=== PATIENT | male | born 1985 | race Caucasian/White ===

== ENCOUNTER 2022-04-11 09:44 | Emergency (ER) | payer OTHER, SELFPAY ==
--- NOTE | ~2022-04-11 | CT_ITS ---
EXAMINATION: CT abdomen pelvis w con DATE: 04/11/2022 11:59 INDICATION: Rectal pain and constipation. TECHNIQUE: Computed tomography (CT) of the abdomen and pelvis was performed with 100 mL Omnipaque-300 intravenous contrast. Automated exposure control and iterative reconstruction technique were employe d. The dose-length product was 410.49 mGy-cm. COMPARISON: None FINDINGS: Lung bases are clear. Heart size is normal. No pericardial or pleural effusion. Liver, gallbladder, s pleen, pancreas, bilateral adrenal glands and kidneys are normal. Bowels including the appendix are n ormal. Small amount of stool scattered throughout the colon. Bladder is normal. Trace amount of nonsp ecific free fluid in the deep pelvis. Mild likely physiologic anterior wedging at T11 and T12. Mild t horacolumbar spondylosis. IMPRESSION: 1. Trace amount of nonspecific ascites in the deep pelvis of indeterminate etiology. No other acute i ntra-abdominal/pelvic process. Reviewed, dictated and finalized at location A. IMPRESSION: 1. Trace amount of nonspecific ascites in the deep pelvis of indeterminate etio logy. No other acute intra-abdominal/pelvic process.
[2022-04-11 09:46] VITALS: BP 128/73; PULSE 76; RESP 14; TEMP 36.4; O2SAT 100
--- NOTE | 2022-04-11 09:50 | ED.GENADULT ---
HPI - General Adult General Chief complaint: Unspecified Stated complaint: rectal pain Time Seen by Provider: 04/11/22 09:50 Source: patient Mode of arrival: ambulatory Limitations: no limitations History of Present Illness HPI narrative: Patient is a 36 y/o male who presents to the ED with c/o rectal pain. Patient reports having intermittent rectal pain for the past 6 weeks. He saw his primary care doctor a few days ago and was told he may have hemorrhoids. He states his primary did not do a physical examination. He was prescribed hydrocortisone cream, denies any relief with this. States over the last couple days, pain has become severe and constant, causing him to wake up at night. He denies any significant pain with having a bowel movement. He has had regular bowel movements over the last 3 days. He does note a history of constipation but states recently this has been improved. Denies any blood with bowel movements, mixed in stool, or dripping into toilet after passing stool. He states the only time he has noticed blood is if he wipes too hard and he will notice just a spot of blood. He denies feeling a bulge in his perianal region. No significant itching. Patient reports nausea, but denies vomiting, abdominal pain, fever, chills, testicular pain or swelling, urinary symptoms. Related Data Allergies Allergy/AdvReac Type Severity Reaction Status Date / Time No Known Allergies Allergy Verified 04/11/22 09:45 Review of Systems Review of Systems: CONSTITUTIONAL: Denies fever, chills, or sweats. GASTROINTESTINAL: Reports rectal pain, nausea. Denies pain with BM, rectal bleeding, abdominal pain, vomiting, constipation, or diarrhea. GENITOURINARY: Denies testicular pain or swelling, dysuria or hematuria. SKIN: Denies rash or itching, perianal bulge. All systems reviewed & are unremarkable except as noted in HPI and below PMFSH Past Medical History Medical History (Updated 04/11/22 @ 12:59 by Debbie Vo PA-C) History of chronic back pain Surgical History Surgical History (Updated 04/11/22 @ 10:38 by Debbie Vo PA-C) S/P repair of PDA Social History Social History (Updated 04/11/22 @ 10:37 by Debbie Vo PA-C) Smoking status: Never smoker Exam Narrative: GENERAL: Well appearing, well-nourished, non-toxic, in no acute distress. HEAD: Normocephalic, atraumatic. NECK: Supple. No adenopathy, no masses. RESPIRATORY: Airway patent, respirations nonlabored. Clear to auscultation bilaterally, no rales, rhonchi, wheezing. CARDIOVASCULAR: Regular rate and rhythm without murmurs, rubs, or gallops. Peripheral pulses 2+ and equal bilaterally. ABDOMINAL: Soft, no tenderness to palpation. Nondistended, no hepatosplenomegaly. Normoactive BS. RECTAL: Normal tone. Stool brown, no gross bleeding. No external hemorrhoids or anal fissures noted. No external skin tags or lesions. No internal hemorrhoids palpated on DANITA. Moderate discomfort with DANITA. No areas of fluctuance or tenderness appreciated in perianal region. MUSCULOSKELETAL: Moves all extremities. Strength/ROM intact without gross deformities. SKIN: Warm, dry, normal color. No rashes. NEURO: A&O X3. Speech clear. Cranial nerves II-XII grossly intact. Steady gait. No ataxic movements. PSYCHIATRIC: Appropriate mood and affect. Normal interaction. Course Vital Signs Vital signs: Vital Signs Temperature 97.6 F 04/11/22 09:46 Pulse Rate 76 04/11/22 09:46 Respiratory Rate 14 04/11/22 09:46 Blood Pressure 128/73 04/11/22 09:46 Pulse Oximetry 100 04/11/22 09:46 Oxygen Delivery Room Air 04/11/22 09:46 Temperature 97.6 F 04/11/22 09:46 Pulse Rate 76 04/11/22 09:46 Respiratory Rate 14 04/11/22 09:46 Blood Pressure 128/73 04/11/22 09:46 Pulse Oximetry 100 04/11/22 09:46 Oxygen Delivery Room Air 04/11/22 09:46 Medical Decision Making MDM Narrative Medical decision making narrative: Patient presented to ED with 6-
[2022-04-11 10:35] LABS: Basophils Percent Auto 0.5 % (0.2-1.2); Eosinophils Absolute Auto 0.1 K/mm3 (0-0.3); Eosinophils Percent Auto 1.7 % (0-4.4); Hematocrit 42.7 % (42.0-52.0); Hemoglobin 13.6 g/dL (14.0-18.0); Immature Granulocyte Absolute 0.01 K/mm3 (0.00-0.031); Immature Granulocyte Percent A 0.2 % (0-0.5); Lymphocytes Absolute Auto 1.79 K/mm3 (0.9-3.2); Lymphocytes Percent Auto 43.8 % (18.3-44.2); Mean Corpuscular HGB Conc 31.9 g/dl (32-36); Mean Corpuscular Hemoglobin 27.4 pg (26-34); Mean Corpuscular Volume 85.9 fl (80-100); Mean Platelet Volume 12.1 fl (7.4-10.4); Monocytes Absolute Auto 0.4 K/mm3 (0.1-0.6); Neutrophils Absolute Auto 1.8 K/mm3 (1.3-6.7); Neutrophils Percent Auto 43.8 % (45.5-73.1); Platelet Count Result 169 k/mm3 (150-375); Red Blood Count 4.97 M/mm3 (4.6-6.20); Red Cell Distribution Width 12.9 % (11.5-14.5); White Blood Count 4.1 K/mm3 (4.5-10.0)
[2022-04-11 10:44] LABS: Alanine Aminotransferase 22 U/L (6-50); Albumin Level 4.3 g/dL (3.5-5.1); Alkaline Phosphatase 65 U/L (38-126); Anion Gap 8 mmol/L (8-16); Aspartate Amino Transferase 27 U/L (17-59); Bilirubin,Total 1.3 mg/dL (0.2-1.3); Blood Urea Nitrogen 9 mg/dL (9-20); Calcium 8.7 mg/dL (8.4-10.2); Carbon Dioxide 27 mmol/L (22-30); Chloride 107 mmol/L (98-107); Estimated CRCL calculation 78 ml/min; Estimated Glomerular Filt Rate > 60; Glucose 104 mg/dL (65-110); Potassium 4.3 mmol/L (3.4-5.0); Sodium 142 mmol/L (137-145)
== END 2022-04-11 13:40 | disposition home or self-care (01) ==
PROVIDERS: Physician Assistant; Emergency Provider Emergency Medicine; PCP Family Medicine
DX: K62.89 Other specified diseases of anus and rectum (principal); R93.5 Abnormal findings on diagnostic imaging of other abdominal regions, including retroperitoneum
CPT/HCPCS: 36415; 74177; 80053; 85025; 99284; Q9967

== ENCOUNTER 2024-03-18 00:41 | Emergency (ER) | payer OTHER, SELFPAY ==
--- NOTE | ~2024-03-18 | XR_ITS ---
EXAMINATION: XR chest 2V DATE: 03/18/2024 00:59 INDICATION: Chest pain. Shortness of breath. TECHNIQUE: Frontal and lateral views of the chest were obtained. COMPARISON: CT abdomen and pelvis 04/11/2022 FINDINGS: There is no pneumonia, pleural effusion, or pneumothorax. The heart size is normal. IMPRESSION: 1. No acute cardiopulmonary disease. Reviewed, dictated and finalized at location E.
--- NOTE | 2024-03-18 00:42 | ECG_ITS ---
Test Date: 2024-03-18 00:47:08 Measurements Intervals [place] Rate: 69 P: 46 RI: 123 QRS: 26 QRSD: 108 T: -3 QT: 377 QTc: 404 Interpretive Statements SINUS RHYTHM BASELINE ARTIFACT- I, II, III, AVR, AVL, AVF NORMAL ECG No previous ECG available for comparison Electronically Signed On 03-18-2024 07:46:30 CDT by Robert Johnson D.O.
[2024-03-18 00:46] VITALS: BP 114/80; PULSE 68; RESP 17; O2SAT 100
[2024-03-18 00:49] VITALS: PULSE 74
[2024-03-18 00:50] VITALS: O2SAT 100
[2024-03-18] MEDS: ASPIRIN 81 MG CHEWABLE TABLET 324 MG PO (00:51)
[2024-03-18 00:54] VITALS: O2SAT 100
--- NOTE | 2024-03-18 00:54 | ED.CHESTPAIN ---
HPI - Chest Pain General Chief Complaint: Chest Pain Stated Complaint: CP, SOB Time Seen by Provider: 03/18/24 00:44 History of Present Illness HPI narrative: patient states that earlier tonight he started feeling some chest tightness and shortness of breath, he thought that he may even indigestion since she he has had similar symptoms before. No history of cardiac disease other than PDA repair when he was a child, no family history of cardiac disease. No medical issues, does not smoke. Symptoms have essentially resolved. Related Data Allergies Allergy/AdvReac Type Severity Reaction Status Date / Time No Known Allergies Allergy Verified 04/11/22 09:45 Review of Systems Review of Systems: All systems reviewed & are unremarkable except as noted in HPI and below PMFSH Past Medical History Medical History (Updated 03/18/24 @ 01:47 by Patti Sanches MD) History of chronic back pain Surgical History Surgical History (Updated 04/11/22 @ 10:38 by Debbie López PA-C) S/P repair of PDA Social History Social History (Updated 04/11/22 @ 10:37 by Debbie López PA-C) Smoking status: Never smoker Exam Narrative: EXAMINATION OF ORGAN SYSTEMS/BODY AREAS: Constitutional: Vital signs per nursing GENERAL:[No acute distress, non-toxic appearing.] HEAD: Normal with no signs of head trauma. EYES: EOMI, conjunctiva normal ENT: Hearing grossly intact LUNGS: Nonlabored breathing. HEART: [Regular rate and rhythm], Normal radial DP pulses bilaterally ABD: [Soft], [nontender to palpation] EXT: Normal range of motion SKIN: [No rashes or lesions.] NEURO: [Alert and oriented x 3. No gross focal sensory or strength deficits.] PSYCH: Normal affect Course Vital Signs Vital signs: Vital Signs Pulse Rate 68 03/18/24 00:46 Respiratory Rate 17 03/18/24 00:46 Blood Pressure 114/80 03/18/24 00:46 Pulse Oximetry 100 03/18/24 00:46 Oxygen Delivery Room Air 03/18/24 00:46 Pulse Rate 74 03/18/24 00:49 Respiratory Rate 17 03/18/24 00:46 Blood Pressure 114/80 03/18/24 00:46 Pulse Oximetry 100 03/18/24 00:54 Oxygen Delivery Room Air 03/18/24 00:54 MDM - Chest Pain MDM Narrative Medical decision making narrative: ED COURSE AND MEDICAL DECISION MAKINM presenting with chest pain. EKG done in triage negative for acute ischemic changes. Cardiac workup is initiated. EKG: Performed in triage and interpreted by me. Normal sinus rhythm. Rate 69. Normal axis. VT normal. QRS duration normal. QTc normal. No pathologic Q waves. No ST segment elevation or depression to suggest acute ischemia. No RV strain pattern. Chest x-ray mind head interpretation does not show any obvious consolidations, cardiomegaly, pneumothorax HEART score is 0 with no acute ischemic changes on EKG and negative troponin making ACS unlikely. Wells low risk with negative PERC making PE unlikely. Presentation not consistent with dissection or aneurysm without radiation of pain or pulse deficits. CXR negative for mediastinal widening. No abdominal pain or signs of sepsis that would be concerning for esophageal perforation or mediastinitis. No cardiomegaly or JVD to suggest pericardial effusion/tamponade. HEART Score: [0]. (Risk of major adverse cardiac events over 6 weeks: Score of 0-3 is low risk <2% ; Score of 4-6 is moderate risk ~12-15%; Score of 7-12 is high risk ~50%). - History - [0]. (Not suspicious 0; moderately suspicious 1; highly suspicious 2). - EKG - [0]. (No ST changes 0; non-specific ST/T changes 1; ST depression 2). - Age - [0]. (<45 = 0; 46-65 = 1; >65 = 2). - Risk factors - [0]. (0 factors = 0; 1-2 factors = 1; >2 factors = 2). - Troponin - [0]. (Normal = 0; Indeterminate = 1; High = 2). On repeat evaluation just prior to discharge, the patient is no acute distress. I had a long discussion with the patient and with shared decision making, [he] is comfortable with outpatient management. [He
[2024-03-18 00:59] LABS: Basophils Percent Auto 0.5 % (0.2-1.2); Eosinophils Absolute Auto 0.1 K/mm3 (0-0.3); Hematocrit 46.4 % (42.0-52.0); Hemoglobin 15.3 g/dL (14.0-18.0); Immature Granulocyte Absolute 0.01 K/mm3 (0.00-0.031); Immature Granulocyte Percent A 0.2 % (0-0.5); Lymphocytes Absolute Auto 3.24 K/mm3 (0.9-3.2); Lymphocytes Percent Auto 55.3 % (18.3-44.2); Mean Corpuscular Volume 84.8 fl (80-100); Mean Platelet Volume 11.8 fl (7.4-10.4); Monocytes Absolute Auto 0.4 K/mm3 (0.1-0.6); Neutrophils Absolute Auto 2.1 K/mm3 (1.3-6.7); Platelet Count Result 168 k/mm3 (150-375); Red Blood Count 5.47 M/mm3 (4.6-6.20); Red Cell Distribution Width 12.1 % (11.5-14.5); White Blood Count 5.9 K/mm3 (4.5-10.0)
[2024-03-18 01:10] LABS: Alanine Aminotransferase 26 U/L (6-50); Albumin Level 4.7 g/dL (3.5-5.1); Alkaline Phosphatase 60 U/L (38-126); Anion Gap 11 mmol/L (4-12); Aspartate Amino Transferase 32 U/L (17-59); Bilirubin,Total 1.3 mg/dL (0.2-1.3); Blood Urea Nitrogen 16 mg/dL (9-20); Calcium 9.3 mg/dL (8.4-10.2); Carbon Dioxide 24 mmol/L (22-30); Chloride 105 mmol/L (98-107); Estimated CRCL calculation 76 ml/min; Estimated Glomerular Filt Rate > 60; Glucose 109 mg/dL (65-110); Lipase 271 U/L (23-300); Potassium 3.7 mmol/L (3.4-5.0); Sodium 140 mmol/L (137-145)
[2024-03-18 01:14] LABS: Prothrombin Time 13.2 Seconds (11.1-14.7)
[2024-03-18 01:15] LABS: Partial Thromboplastin Time 29.2 Seconds (22.3-36.8)
[2024-03-18 01:22] LABS: Troponin I < 0.012 ng/mL (0.000-0.034)
== END 2024-03-18 01:57 | disposition home or self-care (01) ==
PROVIDERS: Emergency Provider Emergency Medicine; PCP Family Medicine
DX: R07.89 Other chest pain (principal)
CPT/HCPCS: 36415; 71046; 80053; 83690; 84484; 85025; 85610; 85730; 93005; 99284; A9270